=== PATIENT | female | born 1980 | race Caucasian/White ===

== ENCOUNTER 2022-08-01 00:11 | Observation (INO) | payer SELFPAY ==
--- NOTE | 2022-08-01 02:05 | ER ---
Nurse's Notes [facility] Name: Mariana Nunes Age: 42 yrs Sex: Female : 1980 Arrival Date: 08/01/2022 Time: 00:15 Bed 16 Private MD: Diagnosis: Deep Venous Thrombosis;Pain in left leg Presentation: 08/01 00:36 Chief complaint: Patient states: "I fell about a week and a half ago and had a knot and vc1 my left leg was swollen. This morning when I woke up it was worse and I noticed it getting purple. I went to [facility] but they said their ultrasound machine was broken and told me to follow up outpatient.". Coronavirus screen: Vaccine status: Patient reports being unvaccinated. Client denies travel out of the [place] in the last 14 days. At this time, the client does not indicate any symptoms associated with coronavirus-19. Ebola Screen: No symptoms or risks identified at this time. Initial Sepsis Screen: Does the patient meet any 2 criteria? HR > 90 bpm. No. Patient's initial sepsis screen is negative. Does the patient have a suspected source of infection? No. Patient's initial sepsis screen is negative. Risk Assessment: Do you want to hurt yourself or someone else? Patient reports no desire to harm self or others. Onset of symptoms is unknown. 00:36 Method Of Arrival: Ambulatory vc1 00:36 Acuity: ANTHONY 3 vc1 Triage Assessment: 00:47 General: Appears in no apparent distress. Behavior is calm, cooperative, appropriate vc1 for age. Pain: Complains of pain in left leg Pain does not radiate. Pain currently is 7 out of 10 on a pain scale. Neuro: Level of Consciousness is awake, alert, obeys commands, Oriented to person, place, time, situation, Appropriate for age. Cardiovascular: Respiratory: No deficits noted. GI: No deficits noted. : No deficits noted. Derm: Skin is. RN INFUSION: 01:57 LMP N/A - Tubes tied vc1 Historical: - Allergies: 01:56 No Known Allergies; vc1 - PMHx: 01:56 Hypertensive disorder; vc1 - PSHx: 01:56 IVC Filter; vc1 - Immunization history:: Adult Immunizations up to date, Client reports having NOT received the Covid vaccine. - Social history:: Smoking status: Patient reports the use of cigarette tobacco products, smokes one-half pack cigarettes per day. Screenin:47 Abuse screen: Denies threats or abuse. Nutritional screening: No deficits noted. vc1 Tuberculosis screening: No symptoms or risk factors identified. Fall Risk None identified. Assessment: 02:30 Reassessment: No changes from previously documented assessment. Patient and/or family vc1 updated on plan of care and expected duration. Pain level reassessed. Patient states symptoms have improved. Vital Signs: 00:36 BP 131 / 77; Pulse 120; Resp 20; Temp 98.4; Pulse Ox 100% ; Weight 163.29 kg; Height 5 vc1 ft. 9 in. (175.26 cm); Pain 8/10; 00:36 Body Mass Index 53.16 (163.29 kg, 175.26 cm) vc1 ED Course: 00:15 Patient arrived in ED. bp1 00:17 Harrison Langley DO is Attending Physician. ms3 00:47 Triage completed. vc1 01:00 Patient has correct armband on for positive identification. Bed in low position. Call vc1 light in reach. Pulse ox on. NIBP on. 01:18 Extremity Venous Uni Ltd US In Process Unspecified. EDMS 01:18 Lower Extremity Artery Uni Ltd US In Process Unspecified. EDMS 01:56 Arm band placed on right wrist. vc1 02:00 No provider procedures requiring assistance completed. Inserted saline lock: 22 gauge vc1 in right wrist, using aseptic technique. 02:03 Pravin Edwards MD is Hospitalizing Provider. ms3 02:11 María Smith RN is Primary Nurse. vc1 02:30 Patient admitted, IV remains in place. vc1 Administered Medications: 02:06 CANCELLED (Other Intervention Used): [place] (HYDROcodone-acetaminophen) (7.5 mg-325 mg) la1 2 tabs PO once 02:37 Drug: Lovenox (enoxaparin) 1 mg/kg Route: Sub-Q; Site: right lower abdomen; vc1 03:55 Follow up: Response: No adverse reaction; Marked relief of symptoms vc1 02:37 Drug: [place] (HYDROcodone-acetaminophen) (7.5 mg-325 mg) 1 tabs Route: PO; vc1 03:54 Follow up: Response: No adverse reaction; Marked relief of symptoms; Pain is decreased vc1 Medication: 02:30 VIS not applicable for this client. vc1 Outcome: 02:04 Decision to Hospitalize by Provider. ms3 02:30 Discharged to home ambulatory. vc1 02:30 Condition: good 02:30 Instructed on the need for admit. 08:48 Patient left the ED. iw Signatures: Dispatcher [employer] Crystal Sharma, MARIAN FONSECA iw Harrison Langley DO DO ms3 Azul Jarvis Vanessa, RN RN vc1 Phill Horta TACO MAKER-Cla1 Corrections: (The following items were deleted from the chart) 03:51 00:36 Pulse 120bpm; Resp 20bpm; Pulse Ox 100%; Temp 98.4F; 163.29 kg; Height 5 ft. 9 vc1 in.; BMI: 53.1; Pain 8/10; vc1
--- NOTE | 2022-08-01 02:05 | EDPHYS ---
Physician Documentation [facility] Name: Mariana Nunes Age: 42 yrs Sex: Female : 1980 Arrival Date: 08/01/2022 Time: 00:15 Bed 16 Private MD: ED Physician Harrison Langley HPI: 08/01 00:33 This 42 yrs old Female presents to ER via Unassigned with complaints of Leg Pain. ms3 00:33 The patient presents with pain, that is acute, swelling. The complaints affect the left ms3 leg. Context:. Onset: The symptoms/episode began/occurred today. Modifying factors: The symptoms are alleviated by nothing. the symptoms are aggravated by nothing. Associated signs and symptoms: The patient has no apparent associated signs or symptoms. Treatment prior to arrival includes: Patient was seen at [facility] ER and has Rx for outpatient US . 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 - Social history:: Smoking status: Patient reports the use of cigarette tobacco products, smokes one-half pack cigarettes per day. ROS: 00:34 Constitutional: Negative for fever, and chills. Neck: Negative for injury, pain, and ms3 swelling, Cardiovascular: Negative for chest pain, and palpitations. Respiratory: Negative for shortness of breath, cough, wheezing, and pleuritic chest pain, Abdomen/GI: Negative for abdominal pain, nausea, vomiting, diarrhea, and constipation. 00:34 MS/extremity: Positive for pain, swelling. 00:34 All other systems are negative. Exam: 00:34 Constitutional: This is a well developed, well nourished patient who is awake, alert, ms3 and in no acute distress. Head/Face: Normocephalic, atraumatic. Neck: Trachea midline, no cervical lymphadenopathy. Supple, full range of motion without nuchal rigidity, or vertebral point tenderness. No Meningismus. Chest/axilla: Normal chest wall appearance and motion. Nontender with no deformity. Cardiovascular: Regular rate and rhythm with a normal S1 and S2. No gallops, murmurs, or rubs. Normal PMI, no JVD. No pulse deficits. Respiratory: Lungs have equal breath sounds bilaterally, clear to auscultation and percussion. No rales, rhonchi or wheezes noted. No increased work of breathing, no retractions or nasal flaring. Abdomen/GI: Soft, non-tender, with normal bowel sounds. No distension or tympany. No guarding or rebound. No evidence of tenderness throughout. Skin: Warm, dry with normal turgor. Normal color with no rashes, no lesions, and no evidence of cellulitis. 00:34 Musculoskeletal/extremity: Extremities: noted in the left leg: pain, swelling, Faint DP and PT. Vital Signs: 00:36 BP 131 / 77; Pulse 120; Resp 20; Temp 98.4; Pulse Ox 100% ; Weight 163.29 kg; Height 5 vc1 ft. 9 in. (175.26 cm); Pain 8/10; 00:36 Body Mass Index 53.16 (163.29 kg, 175.26 cm) vc1 MDM: 00:32 Patient medically screened. ms3 07:39 Data reviewed: vital signs, nurses notes, lab test result(s), radiologic studies, and ms3 as a result, I will admit patient. Counseling: I had a detailed discussion with the patient and/or guardian regarding: the historical points, exam findings, and any diagnostic results supporting the discharge/admit diagnosis, lab results, radiology results, the need for further work-up and treatment in the hospital. ED course: Case discussed with Phill Horta NP, and he accepts patient on behalf of the hospitalist group. 08/01 01:59 Order name: SARS RAPID; Complete Time: 03:01 08/01 01:59 Order name: CBC with Diff; Complete Time: 03:01 08/01 00:33 Order name: Extremity Venous [facility] ms3 08/01 01:59 Order name: BMP; Complete Time: 03:54 08/01 01:59 Order name: PT-INR; Complete Time: 03:01 08/01 01:59 Order name: Ptt, Activated; Complete Time: 03:01 08/01 00:33 Order name: Lower Extremity Artery CHROMAom ms3 Administered Medications: 02:06 CANCELLED (Other Intervention Used): [place] (HYDROcodone-acetaminophen) (7.5 mg-325 mg) la1 2 tabs PO once 02:37 Drug: Lovenox (enoxaparin) 1 mg/kg Route: Sub-Q; Site: right lower abdomen; vc1 03:55 Follow up: Response: No adverse reaction; Marked relief of symptoms vc1 02:37 Drug: [place] (HYDROcodone-acetaminophen) (7.5 mg-325 mg) 1 tabs Route: PO; vc1 03:54 Follow up: Response: No adverse reaction; Marked relief of symptoms; Pain is decreased vc1 Disposition Summary: 08/01/22 02:04 Hospitalization Ordered Hospitalization Status: Observation ms3 Provider: Pravin Edwards ms3 Condition: Stable ms3 Problem: new ms3 Symptoms: are unchanged ms3 Bed/Room Type: Standard ms3 Location: Telemetry/MedSurg (observation)(08/01/22 07:27) [facility] Room Assignment: [facility](08/01/22 07:27) [facility] Diagnosis - Deep Venous Thrombosis ms3 - Pain in left leg ms3 Forms: - Medication Reconciliation Form ms3 - SBAR form ms3 Signatures: Dispatcher [employer] EDPhill Lira, FIELD ARTILLERY FIRE CONTROL MAN-C FIELD ARTILLERY FIRE CONTROL MAN-Cla1 Mellissa Duffy RN RN Bear Bauman RN RN ja1 Harrison Langley DO DO ms3 María Smith RN RN vc1 Corrections: (The following items were deleted from the chart) 02:06 02:06 [place] (HYDROcodone-acetaminophen) (7.5 mg-325 mg) 2 tabs PO once ordered. la1 la1 03:20 02:04 Telemetry/MedSurg (observation) ms3 cg 03:20 02:04 ms3 cg 07: 03:20 [facility] ER HOLD cg ja1 03:20 ERHOLD- cg ja
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
[2022-08-01] MEDS ORDERED: HYDROCODONE/APAP 7.5/325 MG TAB ONE (02:32)
[2022-08-01] MEDS ORDERED: ENOXAPARIN 60 MG/0.6 ML SQ ONE (02:33)
[2022-08-01] MEDS ORDERED: ENOXAPARIN 100 MG/ML SYR SQ ONE (02:33)
[2022-08-01 02:49] LABS: Absolute Lymphocytes (CBC) 2.2 K/uL (0.7-4.9); Hematocrit 42.2 % (36.0-45.0); Lymphocytes % 15.3 % (15.3-44.8); MCV 89.1 fL (80-100); MPV 7.8 fL (7.6-11.3); RBC Red Blood Cell Count 4.73 M/uL (3.86-4.86)
[2022-08-01 02:50] LABS: Protime INR 1.12
[2022-08-01 02:57] LABS: SARS-CoV-2 Antigen Rapid Res Negative (Negative)
[2022-08-01 03:24] LABS: Potassium 3.9 mmol/L (3.5-5.1)
[2022-08-01] MEDS ORDERED: ACETAMINOPHEN 325 MG TABLET PO PRN (03:34)
[2022-08-01 04:14] VITALS: BMI 53.1
[2022-08-01] MEDS ORDERED: INFLUENZA VACCINE (for 6+ mo) 0.5 ML DOSE IMVAC ONE (08:00)
[2022-08-01] MEDS ORDERED: ENOXAPARIN 80 MG/0.8 ML SQ ONE (08:27)
[2022-08-01] MEDS: TRAMADOL HCL 50 MG TAB PO PRN ×2 (11:42→22:36)
--- NOTE | 2022-08-01 14:42 | RAD REPORT ---
EXAM DESCRIPTION: US - Lower Extremity Artery Uni Ltd - 08/01/2022 1:16 am CLINICAL HISTORY: 42 years, Female, PAIN COMPARISON: None FINDINGS: Multiple grayscale images and duplex Doppler ultrasound of the left lower extremity arteri al system was performed with color flow, spectral waveform and peak systolic velocities. There is no evidence for significant arterial occlusion. Left common femoral artery peak systolic velocity of 89 cm/sec. triphasic waveform Left profunda peak systolic velocity of 52 cm/sec. Left superficial femoral artery proximal peak systolic velocity 124 cm/sec. triphasic waveform Left superficial femoral artery mid aspect peak systolic velocity of 189 cm/sec. triphasic waveform Left superficial femoral artery distally peak systolic velocity of 75 cm/sec. biphasic waveform Left popliteal artery was difficult to visualize due to patient body habitus Left posterior tibial artery peak systolic velocity of 72 cm/sec. biphasic waveform Left dorsalis pedis artery peak systolic velocity of 43 cm/sec. biphasic waveform IMPRESSION: No evidence for significant left lower extremity arterial disease. Electronically signed by: Mina Millan MD 08/01/2022 1:39 AM DISPLAY ASSOCIATE Due to temporary technical issues with the PACS/Fluency reporting system, reports are being signed by the in house radiologists without review as a courtesy to insure prompt reporting. The interpreting radiologist is fully responsible for the content of the report.
--- NOTE | 2022-08-01 14:44 | RAD REPORT ---
EXAM DESCRIPTION: US - Extremity Venous Uni Ltd - 08/01/2022 1:16 am ADDENDUM #1 THIS REPORT CONTAINS FINDINGS THAT MAY BE CRITICAL TO PATIENT CARE: Called, telephoned, verbal repo rt was given oral to Harrison Langley MD at 1:33 AM PANEL MACHINE TENDER on 08/01/2022. Electronically signed by: Mina Millan MD 08/01/2022 1:43 AM PANEL MACHINE TENDER End of Addendum EXAM DESCRIPTION: Extremity Venous Uni Ltd 08/01/2022 1:29 AM PANEL MACHINE TENDER CLINICAL HISTORY: 42 years, Female, PAIN COMPARISON: None FINDINGS: Multiple grayscale images as well as duplex Doppler ultrasound (color and spectral analysi s) of left lower extremity were performed. There is a filling defect within the left common femoral vein, left greater saphenous vein, left femo ral vein, left popliteal vein corresponding to DVT. There is flow within the left posterior tibial vein. IMPRESSION: Positive for DVT within the left lower extremity from the left common femoral vein throu gh the popliteal vein. Electronically signed by: Mina Millan MD 08/01/2022 1:30 AM PANEL MACHINE TENDER Due to temporary technical issues with the PACS/Fluency reporting system, reports are being signed by the in house radiologists without review as a courtesy to insure prompt reporting. The interpreting radiologist is fully responsible for the content of the report.
[2022-08-02 03:58] LABS: Absolute Lymphocytes (CBC) 2.1 K/uL (0.7-4.9); Hematocrit 37.2 % (36.0-45.0); Lymphocytes % 23.3 % (15.3-44.8); MCV 88.7 fL (80-100); MPV 8.1 fL (7.6-11.3)
[2022-08-02 04:11] LABS: Potassium 3.8 mmol/L (3.5-5.1)
[2022-08-02] MEDS ORDERED: POTASSIUM CL SA 10 MEQ TAB PO ONE (09:00)
[2022-08-02] MEDS: TRAMADOL HCL 50 MG TAB PO PRN (09:08)
[2022-08-02 09:23] VITALS: BP 109/48; TEMP 97.5
[2022-08-02 10:40] VITALS: O2SAT 96
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
== END 2022-08-02 12:36 | disposition home or self-care (01) ==
LOC: ER 00:11 → ERHOLD 02:29 → 4TH 07:45
PROVIDERS: ADMIT Hospitalist; ATTEND Internal Medicine
DX: I82.432 Acute embolism and thrombosis of left popliteal vein (principal); I82.412 Acute embolism and thrombosis of left femoral vein; E66.01 Morbid (severe) obesity due to excess calories; Z68.43 Body mass index [BMI] 50.0-59.9, adult; Z23 Encounter for immunization; Z20.822 Contact with and (suspected) exposure to COVID-19
CPT/HCPCS: 36415; 80048; 85025; 85610; 85730; 87811; 90471; 93926; 93971; 96372; 99284; G0378; J1650; Q2035

== ENCOUNTER 2024-12-12 21:31 | Emergency (ER) | payer OTHER, SELFPAY ==
[2024-12-12] MEDS ORDERED: FENTANYL CITR 100 MCG/2 ML ONE (22:16)
[2024-12-12 22:47] LABS: PT Prothrombin Time 12.3 SECONDS (10-13.0); Protime INR 1.08
[2024-12-12 22:55] LABS: Absolute Basophils 0.1 K/uL (0-0.5); Absolute Eosinophils 0.4 K/uL (0-0.5); Absolute Lymphocytes (CBC) 2.5 K/uL (0.7-4.9); Absolute Monocytes 0.9 K/uL (0.1-1.3); Absolute Neutrophil 5.5 K/uL (1.8-8.0); Basophils % 0.6 % (0-1.3); Eosinophils % 4.2 % (0-4.4); Hemoglobin 13.6 g/dL (12.0-15.0); Lymphocytes % 26.9 % (15.3-44.8); MCH 30.3 pg (27.0-35.0); MCHC 33.9 g/dL (32.0-36.0); MCV 89.3 fL (80-100); MPV 8.5 fL (7.6-11.3); Monocytes % 9.1 % (3.3-12.3); Neutrophils % 59.2 % (41.7-73.7); Nucleated Red Blood Cells % 0.1 % (0-0); Platelets 294 thou/uL (152-406); RBC Red Blood Cell Count 4.48 M/uL (3.86-4.86); Red Cell Distribution Width 14.1 % (12.1-15.2)
[2024-12-12 22:59] LABS: Albumin 3.8 g/dL (3.4-5.0); Anion Gap 11.6 mEq/L (5.0-15.0); Bilirubin Total 0.6 mg/dL (0.2-1.0); Globulin 3.8 g/dL (2.3-3.5); Potassium 3.6 mEq/L (3.5-5.1); Protein, Total 7.6 g/dL (6.4-8.2)
[2024-12-12 23:10] LABS: Specific Gravity 1.029 (1.005-1.030)
[2024-12-12 23:11] LABS: Specific Gravity 1.029 (1.005-1.030); Urine Bacteria <20 /HPF (<20); Urine Bilirubin NEGATIVE (Negative); Urine Blood Trace (Negative); Urine Clarity Extremely Turbid (Clear); Urine Color Yellow (Yellow); Urine Crystals Unidentified Few /HPF (None Seen); Urine Culture Reflex Order NOT NEEDED; Urine Glucose NEGATIVE (Negative); Urine Ketones NEGATIVE (Negative); Urine Microscopic Reflex YN ORDER UMIC; Urine Mucus 1+ /HPF (None Seen); Urine Nitrite NEGATIVE (Negative); Urine Protein TRACE (Negative); Urine Urobilinogen 1+ (Normal); Urine WBC <5 /HPF (<5); Urine Yeast (Budding) Trace /HPF (None Seen); Urine pH 6.5 (5.0-7.0)
[2024-12-13] MEDS ORDERED: CLINDAMYCIN 900MG/D5W 900 MG/50 ML IVPB IV ONE
--- NOTE | 2024-12-13 00:15 | ER ---
Nurse's Notes [facility] Name: Mariana Nunes Age: 44 yrs Sex: Female : 1980 Arrival Date: 12/12/2024 Time: 21:31 Bed 20 Private MD: Diagnosis: Cellulitis of left lower limb-left lower leg Presentation: 12/12 21:46 Chief complaint: Patient states: left lower leg pain and swelling since Monday. lg3 Coronavirus screen: Client denies travel out of the [place] in the last 14 days. At this time, the client does not indicate any symptoms associated with coronavirus-19. Ebola Screen: No symptoms or risks identified at this time. Initial Sepsis Screen: Does the patient meet any 2 criteria? No. Patient's initial sepsis screen is negative. Does the patient have a suspected source of infection? No. Patient's initial sepsis screen is negative. Risk Assessment: Do you want to hurt yourself or someone else? Patient reports no desire to harm self or others. Onset of symptoms is unknown. 21:46 Method Of Arrival: Wheelchair lg3 21:46 Acuity: ANTHONY 3 lg3 Triage Assessment: 21:48 General: Appears in no apparent distress. uncomfortable, Behavior is calm, cooperative. lg3 Pain: Complains of pain in left leg. EENT: No deficits noted. No signs and/or symptoms were reported regarding the EENT system. Neuro: No deficits noted. Cowan Agitation-Sedation Scale (RASS): 0 - Alert and Calm Level of Consciousness is awake, alert, obeys commands, Oriented to person, place, time, situation. Cardiovascular: No deficits noted. Denies chest pain, shortness of breath, Capillary refill < 3 seconds Clubbing of nail beds is absent JVD is absent Patient's skin is warm and dry. Respiratory: No deficits noted. Airway is patent Respiratory effort is even, unlabored, Respiratory pattern is regular, symmetrical. GI: No deficits noted. No signs and/or symptoms were reported involving the gastrointestinal system. : No signs and/or symptoms were reported regarding the genitourinary system. Derm: Skin is intact, is healthy with good turgor, Skin is dry, Skin is normal, Skin temperature is warm Wound noted left lower leg Reports pain that is 9 out of 10 on a pain scale. Musculoskeletal: Circulation, motion, and sensation intact. Range of motion: intact in all extremities, Swelling present in left lower leg. 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 - Infectious Disease History:: Denies. - Social history:: Smoking status: Patient reports the use of cigarette tobacco products, smokes one-half pack cigarettes per day, Patient/guardian denies using alcohol, street drugs. Screenin:00 [facility] ED Fall Risk Assessment (Adult) History of falling in the last 3 months, jj7 including since admission No falls in past 3 months (0 pts) Confusion or Disorientation No (0 pts) Intoxicated or Sedated No (0 pts) Impaired Gait No (0 pts) Mobility Assist Device Used No (0 pt) Altered Elimination No (0 pt) Score/Fall Risk Level 0 - 2 = Low Risk Oriented to surroundings, Maintained a safe environment, Educated pt \T\ family on fall prevention, incl call for assistance when getting out of bed, Assessed \T\ reinforced patient's understanding of fall precautions. Abuse screen: Denies threats or abuse. Nutritional screening: No deficits noted. Tuberculosis screening: No symptoms or risk factors identified. Assessment: 22:00 General: Appears in no apparent distress. comfortable, Behavior is calm, cooperative, jj7 appropriate for age. Pain: Complains of pain in left macedo Pain currently is 8 out of 10 on a pain scale. at worst was 10 out of 10 on a pain scale. Derm: Skin is brown, pink, Reports burning, pain that is 8 out of 10 on a pain scale. Vital Signs: 21:46 BP 112 / 82; Pulse 67; Resp 16 S; Temp 97.9(O); Pulse Ox 100% on R/A; Weight 140.61 kg lg3 (R); Height 5 ft. 9 in. (R); Pain 9/10; 22:37 BP 114 / 54; Pulse 69; Resp 18; Pulse Ox 99% ; jj7 23:30 BP 120 / 74; Pulse 74; Resp 17; Pulse Ox 99% ; j7 12/13 00:16 BP 117 / 76; Pulse 72; Resp 18; Temp 98.3; Pulse Ox 100% ; jj7 12/12 21:46 Body Mass Index 45.78 (140.61 kg, 175.26 cm) lg3 12/12 21:46 Pain Scale: Adult [facility] ED Course: 12/12 21:34 Patient arrived in ED. jj6 21:40 Shen Gross PA is PHCP. cp 21:40 Shen Hammond MD is Attending Physician. cp 21:48 Triage completed. lg3 21:48 Arm band placed on right wrist. lg3 22:00 Patient has correct armband on for positive identification. Placed in gown. Bed in low jj7 position. Call light in reach. Side rails up X 1. Provided Education on: USE OF CALL PRAKASH. Warm blanket given. 22:03 Delano Taylor, MARIAN is Primary Nurse. jj7 22:04 EKG done, by senior technical project manager. af3 22:24 Blood Culture Adult (2) Sent. jj7 22:24 CBC with Diff Sent. jj7 22:24 CMP Sent. jj7 22:24 Lactate w/ 2H reflex if indic. Sent. jj7 22:24 Protime (+inr) Sent. jj7 22:24 Ptt, Activated Sent. jj7 22:27 Inserted saline lock: 20 gauge in right antecubital area, using aseptic technique. af3 Blood collected. Flushed with 10 mL NS. 12/13 00:08 Extremity Venous Unilateral Ltd In Process Unspecified. EDMS 00:11 Dressings: Kerlix X 1; left macedo non-adherent dressing x 2 left macedo. Wound care: to jj7 cellulitis located on left macedo was cleaned with with NS, dressed with Neosporin, Kerlix. 00:46 No provider procedures requiring assistance completed. IV discontinued, intact, jj7 bleeding controlled, No redness/swelling at site. Pressure dressing applied. Administered Medications: 12/12 22:22 Drug: fentaNYL (PF) IVP 50 mcg IVP once Route: IVP; Site: right antecubital; jj7 12/13 00:15 Follow up: Response: Marked relief of symptoms; Pain is decreased jj7 00:10 Drug: Clindamycin IVPB 900 mg IVPB once over 30 mins; (mix in 50 mL) Route: IVPB; jj7 Infused Over: 30 mins; Site: right antecubital; 00:46 Follow up: IV Status: Completed infusion jj7 Medication: 12/12 22:00 VIS not applicable for this client. jj7 Outcome: 12/13 00:14 Discharge ordered by . batsheva 00:46 Discharged to home ambulatory, jj7 00:46 Condition: improved 00:46 Discharge instructions given to patient, Instructed on discharge instructions, follow up and referral plans. medication usage, wound care, Demonstrated understanding of instructions, follow-up care, medications, wound care, Prescriptions given X 4, 00:47 Patient left the ED. jj7 Signatures: Dispatcher [employer] EDMS Shen Gross PA PA cp Able, Lacie, RN RN lg3 Sade Raines jj6 Delano Taylor RN RN jj7 Elisabeth Almanza af3 Corrections: (The following items were deleted from the chart) 00:45 00:13 BP 117 / 76; Pulse 72bpm; Resp 18bpm; Pulse Ox 100%; jj7 jj7
--- NOTE | 2024-12-13 00:15 | EDPHYS ---
Physician Documentation [facility] Name: Mariana Nunes Age: 44 yrs Sex: Female : 1980 Arrival Date: 12/12/2024 Time: 21:31 Bed 20 Private MD: ED Physician Shen Hammond HPI: 12/12 21:55 This 44 yrs old Female presents to ER via Wheelchair with complaints of Leg Pain, Leg cp Swelling, POSSIBLE CELLULITIS TO LEFT LEG. 21:55 The patient presents with pain, that is acute, swelling, tenderness. The complaints cp affect the left lower leg. 21:55 Onset: The symptoms/episode began/occurred this past Monday. Associated signs and cp symptoms: Pertinent negatives fever. Patient reports noticed area of rash to left lower leg that she attributed to exposure to poison oak in yard. now erythema and warm to touch. 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 - Infectious Disease History:: Denies. - Social history:: Smoking status: Patient reports the use of cigarette tobacco products, smokes one-half pack cigarettes per day, Patient/guardian denies using alcohol, street drugs. ROS: 21:58 Constitutional: Negative for body aches, chills, fever, cp 21:58 MS/extremity: Positive for erythema, pain, swelling, tenderness, of the left lower leg, cp 21:58 Eyes: Negative for injury, pain, redness, and discharge, cp 21:58 ENT: Negative for drainage from ear(s), ear pain, sore throat, difficulty swallowing, difficulty handling secretions, 21:58 Cardiovascular: Negative for chest pain, palpitations, 21:58 Respiratory: Negative for cough, shortness of breath, wheezing, 21:58 Abdomen/GI: Negative for abdominal pain, vomiting, diarrhea, constipation, 21:58 Neuro: Negative for altered mental status, cp 21:58 All other systems are negative, Exam: 22:03 Constitutional: The patient appears in no acute distress, alert, awake, cp non-diaphoretic, non-toxic, well developed, well nourished, obese, uncomfortable, 22:03 Head/Face: Normocephalic, atraumatic. cp 22:03 Eyes: Periorbital structures: appear normal, Conjunctiva: normal, no exudate, no injection, Sclera: no appreciated abnormality, Lids and lashes: appear normal, bilaterally, 22:03 ENT: External ear(s): are unremarkable, Nose: is normal, Mouth: Lips: moist, Oral mucosa: moist, Posterior pharynx: Airway: no evidence of obstruction, patent, 22:03 Chest/axilla: Inspection: normal, 22:03 Cardiovascular: Rate: normal, Rhythm: regular, JVD: is not appreciated, 22:03 Respiratory: the patient does not display signs of respiratory distress, Respirations: normal, no use of accessory muscles, no retractions, labored breathing, is not present, Breath sounds: are clear throughout, no decreased breath sounds, no stridor, no wheezing, 22:03 Abdomen/GI: Exam negative for discomfort, distension, guarding, Inspection: obese 22:03 Back: pain, is absent, ROM is normal, 22:03 Musculoskeletal/extremity: Extremities: noted in the left lower leg: erythema, cp swelling, tenderness, large superficial wound, 22:03 Neuro: Orientation: to person, place \T\ time. Mentation: is normal, Motor: moves all cp fours, strength is normal, 22:04 ECG was reviewed by the Attending Physician. cp Vital Signs: 21:46 BP 112 / 82; Pulse 67; Resp 16 S; Temp 97.9(O); Pulse Ox 100% on R/A; Weight 140.61 kg lg3 (R); Height 5 ft. 9 in. (R); Pain 9/10; 22:37 BP 114 / 54; Pulse 69; Resp 18; Pulse Ox 99% ; jj7 23:30 BP 120 / 74; Pulse 74; Resp 17; Pulse Ox 99% ; jj7 12/13 00:16 BP 117 / 76; Pulse 72; Resp 18; Temp 98.3; Pulse Ox 100% ; jj7 12/12 21:46 Body Mass Index 45.78 (140.61 kg, 175.26 cm) lg3 12/12 21:46 Pain Scale: Adult lg3 MDM: 12/12 21:40 Medical Screening Exam initiated cp 22:00 Differential diagnosis: sepsis, dvt, abscess, cellulitis. 12/13 00:14 Data reviewed: vital signs, nurses notes, lab test result(s), EKG, radiologic studies, cp ultrasound, and as a result, I will discharge patient. 00:14 I considered the following discharge prescriptions or medication management in the emergency department Medications were administered in the Emergency Department. See MAR. Independent interpretation of the following test(s) in the Emergency Department EKG: See my EKG interpretation above. Counseling: I had a detailed discussion with the patient and/or guardian regarding the historical points, exam findings, and any diagnostic results supporting the discharge/admit diagnosis, lab results, radiology results, to return to the emergency department if symptoms worsen or persist or if there are any questions or concerns that arise at home. Response to treatment: the patient's symptoms have mildly improved after treatment, and as a result, I will discharge patient. 12/12 21:51 Order name: Blood Culture Adult (2) 12/12 21:51 Order name: CBC with Diff; Complete Time: 23:15 12/12 21:51 Order name: CMP; Complete Time: 23:15 12/12 23:15 Interpretation: Reviewed. 12/12 21:51 Order name: Lactate w/ 2H reflex if indic.; Complete Time: 23:15 12/12 21:51 Order name: Protime (+inr); Complete Time: 22:50 12/12 22:51 Interpretation: Reviewed. 12/12 21:51 Order name: Ptt, Activated; Complete Time: 22:50 12/12 22:51 Interpretation: Reviewed. 12/12 21:51 Order name: Urinalysis w/ reflexes; Complete Time: 23:15 12/12 21:51 Order name: Test, Urine; Complete Time: 23:15 12/12 22:52 Order name: Glucose, Ancillary Testing; Complete Time: 23:15 EDMS 12/12 22:23 Order name: US Extremity Venous Unilateral Ltd 12/12 21:51 Order name: Accucheck; Complete Time: 22:52 12/12 21:51 Order name: Cardiac monitoring; Complete Time: 22:03 cp 12/12 21:51 Order name: EKG - Nurse/Tech; Complete Time: 22:03 cp 12/12 21:51 Order name: IV Saline Lock - Large Bore; Complete Time: 22:24 cp 12/12 21:51 Order name: Labs collected and sent; Complete Time: 22:24 cp 12/12 21:51 Order name: O2 Per Protocol; Complete Time: 22:03 12/12 21:51 Order name: O2 Sat Monitoring; Complete Time: 22:03 cp 12/12 21:51 Order name: Vital Signs; Complete Time: 22:24 cp 12/12 23:24 Order name: Wound dressing: clean an dress wound; Complete Time: 00:10 cp EC/27 22:04 Rate is 70 beats/min. Rhythm is regular. OH interval is normal. QRS interval is normal. cp QT interval is normal. T waves are Inverted in leads III, aVR. Interpreted by me. Reviewed by me. Administered Medications: 22:22 Drug: fentaNYL (PF) IVP 50 mcg IVP once Route: IVP; Site: right antecubital; jj7 12/13 00:15 Follow up: Response: Marked relief of symptoms; Pain is decreased jj7 00:10 Drug: Clindamycin IVPB 900 mg IVPB once over 30 mins; (mix in 50 mL) Route: IVPB; jj7 Infused Over: 30 mins; Site: right antecubital; 00:46 Follow up: IV Status: Completed infusion jj7 Disposition Summary: 12/13/24 00:14 Discharge Ordered Notes: Location: Home cp Problem: new cp Symptoms: have improved cp Condition: Stable cp Diagnosis - Cellulitis of left lower limb - left lower leg cp Followup: cp - With: Private Physician - When: 2 - 3 days - Reason: Wound Recheck Discharge Instructions: - Discharge Summary Sheet cp - Cellulitis, Adult cp Forms: - Medication Reconciliation Form cp - Antibiotic Education cp - Prescription Opioid Use cp - Patient Portal Instructions cp - Leadership Thank You Letter cp Prescriptions: - mupirocin 2 % Topical ointment - apply 1 application TOPICAL route 2 times per day; 30 gram; Refills: 0, Product cp Selection Permitted - Anaprox DS 550 mg Oral Tablet - take 1 tablet ORAL route every 12 hours As needed; 20 tablet; Refills: 0, cp Product Selection Permitted - Clindamycin HCl 300 mg Oral Capsule - take 1 capsule ORAL route every 6 hours for 10 days; 40 capsule; Refills: 0, cp Product Selection Permitted - Bactrim DS 800-160 mg Oral Tablet - take 1 tablet ORAL route every 12 hours for 10 days; 20 tablet; Refills: 0, cp Product Selection Permitted Signatures: Dispatcher [employer] EDMS Shen Gross PA PA cp Able, Lacie RN RN lg3 Delano Taylor RN RN jj7 Corrections: (The following items were deleted from the chart) 12/12 21:52 21:52 BLOOD CULTURE*+BA.LAB.BRZ ordered. EDMS EDMS 21:52 21:52 CBC+H.LAB.BRZ ordered. EDMS EDMS 21:52 21:52 COMPREHENSIVE METABOLIC PANEL+C.LAB.BRZ ordered. EDMS EDMS 21:52 21:52 LACTATE+C.LAB.BRZ ordered. EDMS EDMS 21:52 21:52 PROTIME (+INR)+COAG.LAB.BRZ ordered. EDMS EDMS 21:52 21:52 PTT, ACTIVATED+COAG.LAB.BRZ ordered. EDMS EDMS 21:52 21:52 Urinalysis+U.LAB.BRZ ordered. EDMS EDMS 21:52 21:52 Test, Urine+UC.LAB.BRZ ordered. EDMS EDMS 22:24 22:24 Extremity Venous Uni Ltd+US.RAD.BRZ ordered. EDMS EDMS
[2024-12-13 01:14] VITALS: BP 117/76; TEMP 98.3; O2SAT 100
--- NOTE | 2024-12-13 07:08 | RAD REPORT ---
EXAM DESCRIPTION: EXTREMITY VENOUS UNI LTD CLINICAL HISTORY: 44 years Female Pain, swelling. COMPARISON: Radiograph of left tibia and fibula 07/31/2022. TECHNIQUE: Real time and doppler sonography of the deep venous system of the left lower extremity was performed. Grayscale color and spectral analysis was utilized. FINDINGS: Nonocclusive intraluminal thrombus is seen involving the left common femoral and greater saphenous ve ins. Partial compressibility seen in these regions. The findings are suspicious for chronic thrombus. Additional echogenic debris is seen within the left common femoral and greater saphenous ve ins. Satisfactory compressibility remaining levels. Left inguinal adenopathy. The largest lymph node measu res 5.4 cm. No popliteal cyst. IMPRESSION: Findings suspicious for chronic nonocclusive thrombus left common femoral and greater saphenous veins . Findings were conveyed to the emergency room physician by the make up man at the time 12: 15 AM Centr al standard time. Electronically signed by: Ashley Leon MD 12/13/2024 12:40 AM CDT RP Due to temporary technical issues with the [email or web address] reporting system, reports are being myrna d by the in-house radiologist without review as a courtesy to ensure prompt reporting the interpreting radiologist is fully responsible for the content of the report. Transcribed Date/Time: 12/13/2024 7:08 AM
--- NOTE | 2024-12-16 11:31 | EKG ---
Test Date: 2024-12-12 Test Time: 21:58:34 Continuous Improvement Coach: AF MEASUREMENT RESULTS: Intervals: Rate: 70 WA: 152 QRSD: 82 QT: 402 QTc: 434 [place]: P: 51 WA: 152 QRS: 68 T: 37 INTERPRETIVE STATEMENTS: Normal sinus rhythm Normal ECG No previous ECG available for comparison Electronically Signed On 12-16-24 11:23:19 CDT by Arian Jovel
== END 2024-12-13 00:47 | disposition home or self-care (01) ==
LOC: ER 21:31
DX: L03.116 Cellulitis of left lower limb (principal); F17.210 Nicotine dependence, cigarettes, uncomplicated; Z79.82 Long term (current) use of aspirin
CPT/HCPCS: 96365; 93005; 87040 ×2; 85025; 81001; 36415; 81025; 85610; 82947; 83605; 85730; 80053; 93971; 96375; 99284; J3010